=== PATIENT | female | born 1980 | race Caucasian/White ===

== ENCOUNTER 2018-01-05 19:40 | Emergency (ER) | payer MEDICAID ==
[~2018-01-05] VITALS: Ht 162.6 cm; Wt 81.6 kg
[2018-01-05 19:44] VITALS: Ht 162.6 cm; Wt 81.6 kg
[2018-01-05 22:38] VITALS: BP 132/71
== END 2018-01-05 22:38 | disposition home or self-care (01) ==
LOC: ED 19:40
DX: S53.115A Anterior dislocation of left ulnohumeral joint, initial encounter (principal); S70.02XA Contusion of left hip, initial encounter; W19.XXXA Unspecified fall, initial encounter; Y93.89 Activity, other specified; Y92.89 Other specified places as the place of occurrence of the external cause; Y99.8 Other external cause status
CPT/HCPCS: 24620; J1170; J2270; J2765; Q0092

== ENCOUNTER 2018-08-10 13:11 | Emergency (ER) | payer SELFPAY ==
[~2018-08-10] VITALS: Ht 162.6 cm; Wt 84.4 kg
[2018-08-10 13:51] LABS: BASOPHIL % 0.4 % (0-2); PLATELET COUNT 351 x10^3mcL (130-400)
[2018-08-10 13:53] LABS: RED CELL DISTRIBUTION WIDTH 18.9 % (11.5-14.5)
[2018-08-10 14:31] LABS: CALCIUM 8.5 mg/dL (8.5-10.1); CARBON DIOXIDE 30.4 mmol/L (21-32); CHLORIDE SERUM 108 mmol/L (98-107); CREATININE SERUM 0.8 mg/dL (0.6-1.0); GFR1 > 60 mL/min; GLUCOSE SERUM 109 mg/dL (74-106); SODIUM SERUM 146 mmol/L (136-145)
[2018-08-10 14:36] LABS: ALBUMIN 3.5 g/dL (3.4-5.0); ALKALINE PHOSPHATASE 104 U/L (46-116); ALT/SGPT 56 U/L (14-59); AST/SGOT 20 U/L (15-37); BILIRUBIN TOTAL 0.22 mg/dL (0.20-1.00); TOTAL PROTEIN, SERUM 7.7 g/dL (6.4-8.2)
[2018-08-10 15:00] VITALS: BP 103/63
== END 2018-08-10 15:08 | disposition home or self-care (01) ==
LOC: ED 13:11
PROVIDERS: Emergency Medicine
DX: R07.89 Other chest pain (principal)
CPT/HCPCS: 85378; J1885; Q0092